=== PATIENT | female | born 1995 | race African-American/Black ===

== ENCOUNTER 2023-03-12 15:45 | Inpatient (IN) | payer BC ==
[2023-03-12 16:41] VITALS: BMI 25.7
[2023-03-12] MEDS ORDERED: Lidocaine 1% (PF) 30 ML VIAL SC PRN (16:41)
[2023-03-12] MEDS ORDERED: Carboprost 250 MCG/ML AMP IM PRN (16:41)
[2023-03-12] MEDS ORDERED: Zolpidem Tartrate 5 MG TAB PO PRN (16:41)
[2023-03-12] MEDS ORDERED: Diphenoxylate HCl/Atropine Tablet PO PRN ×2 (16:41)
[2023-03-12] MEDS ORDERED: hydrALAZINE 20 MG/ML VIAL SLOW IVP PRN (16:41)
[2023-03-12] MEDS ORDERED: Acetaminophen 500 MG TAB PO PRN (16:41)
[2023-03-12] MEDS ORDERED: fentaNYL 50 mcg/mL 1 mL Vial SLOW IVP PRN (16:41)
[2023-03-12] MEDS ORDERED: Tranexamic Acid 1,000 MG/10 ML VIAL IVP PRN (16:41)
[2023-03-12] MEDS ORDERED: Promethazine HCl 25 MG/ML VIAL IM PRN (16:41)
[2023-03-12] MEDS ORDERED: Ondansetron PF 4 MG/2 ML Vial IVP PRN (16:41)
[2023-03-12] MEDS ORDERED: Methylergonovine 0.2 MG/ML VIAL IM PRN (16:41)
[2023-03-12] MEDS ORDERED: Misoprostol 200 MCG TAB PR PRN (16:41)
[2023-03-12] MEDS ORDERED: Oxytocin 30 units/NS 500 ML 500 ML IV SCH ×2 (16:45)
[2023-03-12 18:00] LABS: Syphilis Antibody Nonreactive (Nonreactive); Syphilis Antibody Index 0.05 S/CO (<1.00 Non-Reactive)
[2023-03-12] MEDS ORDERED: Lidocaine 2% MPF 10 ML AMP (For Epidural Use) ONE (18:00)
[2023-03-12] MEDS ORDERED: Bupivacaine 0.25% HCL 30 ML VIAL ONE (18:00)
[2023-03-12] MEDS ORDERED: Bupivacaine PF 0.5% 30 ML VIAL ONE (18:00)
[2023-03-12 18:02] LABS: HBSAg Index 0.17 S/CO (0-0.99); Hep B Surf Ag - L&D Non-Reactive S/CO (NonReactive)
[2023-03-12 18:08] LABS: Hematocrit 38.5 % (34.9-44.5); Hemoglobin 13.2 g/dL (12.0-15.5); Mean Corpuscular HGB CONC 34.3 g/dL (32.0-36.0); Mean Corpuscular Hemoglobin 30.6 pg (27.0-33.0); Mean Corpuscular Volume 89.1 fl (81.6-98.3); Mean Platelet Volume 12.3 fl (7.4-10.4); Platelet Count 154 10x3/uL (150-450); RBC Distribution Width 12.1 % (11.5-14.5); Red Blood Cell (RBC) Count 4.32 10x6/uL (3.90-5.03)
[2023-03-12] MEDS: Lactated Ringer's 1,000 ML IV SCH (21:00)
[2023-03-13] MEDS: Lactated Ringer's 1,000 ML IV SCH ×2 (10:17→18:00)
[2023-03-13] MEDS: Misoprostol 100 MCG TAB VAG SCH ×2 (10:17→18:00)
[2023-03-13] MEDS ORDERED: fentaNYL/Ropivacaine Epidural 100 ML ONE (10:53)
[2023-03-13] MEDS ORDERED: ePHEDrine Sulfate 50 MG/10 ML VIAL SLOW IVP PRN (12:44)
[2023-03-13] MEDS ORDERED: Ondansetron PF 4 MG/2 ML Vial IVP PRN (12:44)
[2023-03-13] MEDS ORDERED: Naloxone HCl 0.4 mg/ml Vial IVP PRN ×2 (12:44)
[2023-03-13] MEDS ORDERED: Promethazine HCl 25 MG/ML VIAL IM PRN (12:44)
[2023-03-13] MEDS ORDERED: Acetaminophen 325 MG TAB PO PRN ×2 (12:44→14:22)
[2023-03-13] MEDS ORDERED: diphenhydrAMINE 50 MG/ML VIAL IVP PRN (12:44)
[2023-03-13] MEDS ORDERED: Lactated Ringer's 500 ML IV PRN (12:44)
[2023-03-13] MEDS ORDERED: Moisturizing Cream (Eucerin) 113 GM JAR TOP PRN (12:44)
[2023-03-13] MEDS ORDERED: Communication Order-Pharmacy FS SCH (12:45)
[2023-03-13] MEDS ORDERED: fentaNYL 2 mcg/Ropivacaine 0.2% Epidural 100 ML CADD EPIDURAL SCH (12:45)
[2023-03-13] MEDS ORDERED: Azithromycin 500 MG VIAL ONE (13:07)
[2023-03-13] MEDS ORDERED: Famotidine/PF 20 mg/2ml Vial SLOW IVP PRN (13:07)
[2023-03-13] MEDS ORDERED: CEFAZOLIN 2 GM VIAL ONE (13:07)
[2023-03-13] MEDS ORDERED: Bicitra 30 ML UDCUP PO PRN (13:07)
[2023-03-13] MEDS ORDERED: CEFAZOLIN 2 GM in Sodium Chloride 0.9% 100 ML IVPB SCH (13:15)
[2023-03-13] MEDS ORDERED: Azithromycin 500 MG in Sodium Chloride 0.9% 250 ML 250 ML IVPB SCH (13:15)
[2023-03-13] MEDS ORDERED: Morphine PF 10 MG/10 ML VIAL ONE (13:30)
[2023-03-13] MEDS ORDERED: Dexmedetomidine 200 MCG/2 ML VIAL ONE (13:30)
[2023-03-13] MEDS ORDERED: PROPOFOL 20 ML ONE (13:30)
[2023-03-13] MEDS ORDERED: Oxytocin 10 UNITS/ML VIAL ONE ×2 (13:52)
[2023-03-13] MEDS ORDERED: Lanolin Ointment 7 GM TUBE TOP PRN (14:22)
[2023-03-13] MEDS ORDERED: hydrALAZINE 20 MG/ML VIAL SLOW IVP PRN (14:22)
[2023-03-13] MEDS ORDERED: diphenhydrAMINE 25 MG CAP PO PRN (14:22)
[2023-03-13] MEDS ORDERED: Boostrix 0.5 ML (Tdap) VIAL (>/=7 yrs of age) IM ONE (14:22)
[2023-03-13] MEDS ORDERED: HYDROcodone/Acetaminophen 5/325 mg Tablet PO PRN (14:22)
[2023-03-13] MEDS ORDERED: Bisacodyl 10 MG SUPP PR PRN (14:22)
[2023-03-13] MEDS ORDERED: Ketorolac Tromethamine 30 MG/ML VIAL IVP PRN (20:12)
[2023-03-13] MEDS: Docusate 100 MG CAP PO SCH (21:30)
[2023-03-13] MEDS ORDERED: Ibuprofen 800 MG TAB PO SCH (22:00)
[2023-03-14 03:37] LABS: Hemoglobin 10.8 g/dL (12.0-15.5); Mean Corpuscular HGB CONC 34.8 g/dL (32.0-36.0); Mean Corpuscular Hemoglobin 30.9 pg (27.0-33.0); Mean Corpuscular Volume 88.8 fl (81.6-98.3); Platelet Count 139 10x3/uL (150-450); RBC Distribution Width 12.2 % (11.5-14.5); Red Blood Cell (RBC) Count 3.49 10x6/uL (3.90-5.03); White Blood Cell (WBC) Count 13.8 10x3/uL (3.5-10.5)
[2023-03-14] MEDS ORDERED: Ketorolac Tromethamine 30 MG/ML VIAL IVP PRN (04:15)
[2023-03-14] MEDS: Prenatal Vitamin 1 TAB PO SCH (09:07)
[2023-03-14] MEDS: Docusate 100 MG CAP PO SCH ×2 (09:07→21:52)
[2023-03-14] MEDS: HYDROcodone/Acetaminophen 5/325 mg Tablet PO PRN ×2 (09:14→16:35)
[2023-03-14] MEDS: Simethicone Chewable 80 MG TAB PO PRN ×2 (09:14→16:35)
[2023-03-14] MEDS: Ibuprofen 800 MG TAB PO SCH ×2 (13:49→21:52)
[2023-03-15] MEDS: Ibuprofen 800 MG TAB PO SCH ×2 (05:01→13:38)
[2023-03-15] MEDS: Docusate 100 MG CAP PO SCH (08:37)
[2023-03-15] MEDS: Prenatal Vitamin 1 TAB PO SCH (08:38)
[2023-03-15 12:34] VITALS: BP 113/67; TEMP 98.5
== END 2023-03-15 15:15 | disposition home or self-care (01) | DRG 787 ==
LOC: CSHLD 15:45 → CSHPP 03-13 17:40
PROVIDERS: ADMIT Obstetrics & Gynecology; ATTEND Obstetrics & Gynecology
PROC: 10D00Z1 Extraction of Products of Conception, Low, Open Approach (ICD-10-PCS; principal; 2023-03-13)
DX: O48.0 Post-term pregnancy (principal); O33.0 Maternal care for disproportion due to deformity of maternal pelvic bones; O62.9 Abnormality of forces of labor, unspecified; Z3A.41 41 weeks gestation of pregnancy; Z37.0 Single live birth; O76 Abnormality in fetal heart rate and rhythm complicating labor and delivery; O77.0 Labor and delivery complicated by meconium in amniotic fluid; O62.2 Other uterine inertia
CPT/HCPCS: 36415; 51702; 85027; 86780; 86850; 86900; 86901; 87340; J1885; J2274; J2405; J2590; J2704; J7120; S0020